=== PATIENT | male | born 1995 | race Caucasian/White ===

== ENCOUNTER 2022-09-04 05:38 | Emergency (ER) | payer OTHER, SELFPAY ==
[2022-09-04 05:40] VITALS: BP 140/78; PULSE 75; RESP 18; TEMP 36.7; O2SAT 98; BMI 30.5
[2022-09-04] MEDS: morphine 10 MG/ML Syringe IM (07:21)
[2022-09-04] MEDS: Ondansetron ODT 4 MG Tablet PO (07:21)
[2022-09-04 07:23] VITALS: BP 131/68; PULSE 77; RESP 16; O2SAT 97
--- NOTE | 2022-09-04 08:41 | EX.ED.DYSGE1 ---
HPI History of Present Illness Chief Complaint: Other, Pain/Inj Narrative Narrative: Patient is a 27-year-old male with no significant past medical history. He states that he has had pain in his low back/upper buttocks region for the past 3 to 5 days with no known injury. He states he went and saw his family doctor today who informed him that he has changes consistent with a infected cyst. He was started on Augmentin but the area was not drained and he feels that despite taking the antibiotic there is been no improvement and secondary to this he comes in for evaluation. PFSH PFSH Medical History no medical history no medical history Home Medications oxycodone-acetaminophen 5 mg-325 mg tablet (Percocet) 1 tab PO Q6H PRN pain 3 days #12 tabs 09/04/22 [Rx Last Taken Unknown] Allergy/AdvReac Type Severity Reaction Status Date / Time No Known Allergies Allergy Verified 09/04/22 05:47 Social History Smoking Status: Current every day smoker tobacco type: cigarettes ROS ROS ED Constitutional Constitutional ED: Denies chills or fever(s) ENT ENT ED: Denies sore throat Cardiovascular Cardiovascular: Denies chest pain Respiratory/Chest Respiratory/Chest: Denies cough or dyspnea Gastrointestinal Gastrointestinal: Denies abdominal pain, diarrhea, nausea or vomiting Genitourinary Genitourinary ED: Denies dysuria Musculoskeletal Musculoskeletal: Denies myalgias Integumentary Reports abscess; Denies rash Neurologic Neurologic: Denies headache(s) Hematologic/Lymphatic Hematologic/Lymphatic: Denies easy bleeding or easy bruising EXAM Physical Exam Const Vital Signs: 09/04/22 05:40 09/04/22 05:56 09/04/22 07:23 Temperature 98.1 F Temperature Source Temporal Pulse Rate 75 77 Respiratory Rate 18 16 Respiratory Effort Normal Non-Labored Respiratory Pattern Normal Blood Pressure 140/78 H 131/68 H Blood Pressure Mean 98 89 Pulse Ox 98 97 Oxygen Delivery Method Room Air Room Air Positive well nourished and well developed General Appearance ED: well developed HEENT Reports moist mucous membranes Eyes PERRL and EOMs intact bilaterally Neck supple Resp normal respiratory effort and clear to auscultation bilaterally Cardio regular rate and regular rhythm Extremity normal to inspection Neuro oriented x3 and CN's II-XII intact bilaterally Sensorium / Orientation: alert Psych mental status grossly normal Skin Skin Narrative: There is a 2 x 3 cm area of erythema warmth and fluctuance at the low back/gluteal cleft region consistent with abscess. No active drainage or lymphangitic streaking noted. There is mild surrounding erythema consistent with cellulitis as well MDM MDM MDM Narrative Medical decision making narrative: Patient presented to the ER afebrile with area most consistent with abscess with mild surrounding cellulitis. As vitals were stable and there is no lymphangitic streaking I felt no need for imaging or laboratory studies. Patient had the area incised and drained as document below and following this he is safe for discharge. He is currently already prescribed Augmentin so there is no need to change antibiotics or prescribe any further Patient had the area cleaned with Betadine. It was anesthetized with 10 mL of 2% lidocaine with epinephrine in local fashion. A #11 blade was used to make a 1 cm incision over top the area of induration. A large amount of purulent material was expressed. Loculations were dissected with a needle guerrero. The area was copiously irrigated with normal saline. The wound was packed with iodoform gauze. Patient tolerated the procedure well without complication Discharge Plan Triage Chief Complaint: Other, Pain/Inj ED Provider: Margarito Zambrano Dx/Rx/DC Orders Clinical Impression: Abscess and cellulitis of gluteal region Instructions: ED Abscess Incision And Drainage Prescriptions: New oxycodone-acetaminophen [Percocet] 5-325 mg tablet 1 tab PO Q6H PRN (Reason: pain) 3 Days Qty: 12 0RF Primary Care Provider: Care Physician,No Primary Referrals: Care Physician,No Primary [Primary Care Provider] - Activity Restrictions/Additional Instructions: Please continue your Augmentin/antibiotic twice a day as directed. Remove your packing in 48 to 72 hours and follow-up with your family doctor or return to the ER should you have any further concerns Disposition Disposition: Home, Self Care Discharge Date/Time: 09/04/22 08:58
[2022-09-04 08:46] VITALS: BP 137/70; PULSE 69; RESP 18; O2SAT 99
[2022-09-04] MEDS: oxyCODONE 5 MG Tablet 10 MG PO (08:51)
== END 2022-09-04 08:58 | disposition home or self-care (01) ==
PROVIDERS: Emergency Provider Emergency Medicine; Visit Provider Emergency Medicine
DX: L02.31 Cutaneous abscess of buttock (principal); L03.317 Cellulitis of buttock; F17.210 Nicotine dependence, cigarettes, uncomplicated
CPT/HCPCS: 10080; 96372; 99283

== ENCOUNTER 2024-11-27 12:38 | Inpatient (IN) | payer OTHER, SELFPAY ==
[2024-11-27] VITALS (9 sets, daily range): BP systolic 124–147; BP diastolic 75–90; PULSE 94–113; RESP 16–21; TEMP 35.8–36.8; O2SAT 96–98; BMI 32.5
--- NOTE | 2024-11-27 13:17 | CT_ITS ---
PROCEDURE: CT neck soft tissues with IV contrast REASON FOR EXAM: Pain, swelling TECHNIQUE: Multiple contiguous axial images through the neck soft tissues were obtained after the administration of intravenous contrast. Two-dimensional coronal and sagittal reformatted images were reconstructed. Low-dose imaging technique was utilized. COMPARISON: None FINDINGS: Enlarged bilateral palatine tonsils, greater on the left with a small superimposed tonsillar abscess measuring 10 x 7 mm on the left. No discrete right peritonsillar abscess at this time. Edema extends for the palatine tonsil along the left aryepiglottic fold and piriform sinus, however there is no other discrete drainable fluid collection. No retropharyngeal abscess. Mass effect on the nasopharyngeal airway which is moderately narrowed. Hypo pharyngeal airway is patent. Multiple mildly enlarged bilateral cervical chain lymph nodes, likely reactive. Thyroid gland, submandibular glands and parotid glands are intact. Globes are intact. Tongue base is satisfactory. Lung apices are clear. No acute osseous abnormality. Paranasal sinuses and mastoid air cells are relatively clear. CT/Soft Tissue Neck WITH Contrast IMPRESSION: 1. Bilateral palatine tonsillitis with small tonsillar abscess on the left santa uring 10 x 7 mm. 2. Diffuse edema of the left aryepiglottic fold and piriform sinus without deborah tional abscess. Oropharyngeal and hypopharyngeal airways are patent. 3. Bilateral cervical chain adenopathy, likely reactive. One or more dose reduction techniques were used (e.g., Automated exposure contr ol, adjustment of the mA and/or kV according to patient size, use of iterative reconstruction technique). Reading Location: [facility]
[2024-11-27 13:29] LABS: Absolute Lymphocyte Count 6.59 X10^3/uL (0.83-4.51); Absolute Neutrophil Count 9.4 X10^3/uL (2.0-7.7); Basophil# 0.12 X10^3/uL; Basophil% 0.7 % (0-1); Eosinophil# 0.02 X10^3/uL; Eosinophils% 0.1 % (0-5); Hematocrit 45.4 % (40-54); Hemoglobin 15.2 g/dL (13.0-16.5); Lymphocyte # 6.59 X10^3/ul (0.83-4.51); Lymphocyte % 37.9 % (19-41); Mean Corp Hgb Conc 33.5 g/dL (32-36); Mean Corpuscular Hgb 29.5 pg (27.0-32.0); Mean Corpuscular Volume 88.2 fL (80-94); Monocyte# 1.17 X10^3/uL; Monocyte% 6.7 % (0-10); NRBC Flagged by Analyzer 0 % (0-5); Neutrophil # 9.42 X10^3/uL (2.7-7.7); Neutrophil % 54.1 % (47-70); POSITIVE DIFFERENTIAL YES; POSITIVE MORPHOLOGY YES; Platelet Count 245 K/mm3 (150-450); RBC Distribution Width CV 12.6 % (11.6-14.6); Red Blood Count 5.15 M/mm3 (4.6-6.2); White Blood Count 17.4 K/mm3 (4.4-11.0)
[2024-11-27 13:32] LABS: Differential Indicated SCAN CRITERIA MET
[2024-11-27] MEDS: 0.9% Normal Saline (1000mL) 1,000 ML 999 ML IV (13:33)
--- NOTE | 2024-11-27 13:44 | EX.ED.DYSGE1 ---
HPI History of Present Illness Chief Complaint: Sore Throat Narrative Narrative: 29-year-old male presents with his because of throat pain and closing of throat that he has had for the last 2 days. He states that 2 days ago he started to not feel well. He had a fever that first day. Over the last 2 days, he is having difficulty swallowing to the point where he cannot swallow liquids. He has pain with swallowing. He is having difficulty speaking as well. This is never happened to him previously. He does not take daily medications. His had been ill with upper respiratory infection as well. She denies any nausea or vomiting. No cough. Through review of his EMR, he was seen in urgent care today and it was stressed that he come to the emergency department for further evaluation and treatment. PFSH PFS Medical History no medical history Home Medications ?Medication ?Instructions ?Recorded ?Last Taken ?Type NK 11/27/24 Unknown History Allergy/AdvReac Type Severity Reaction Status Date / Time No Known Allergies Allergy Verified 11/27/24 12:41 Social History Smoking Status: Former smoker ROS ROS ED ROS Narrative Review of systems positive for fever that has resolved. Positive throat swelling. No difficulty breathing. Unable to eat or drink. No cough. No nausea or vomiting. No exacerbating or alleviating factors. EXAM Physical Exam Narrative Exam Narrative: Afebrile. Vital signs noted. Nontoxic-appearing. HEENT examination demonstrates PERRL, EOMI. Neck is soft and supple with noted uvular and peritonsillar swelling. No noted drooling currently. Handling secretions well. No meningismus. Positive hot potato voice. Cardiovascular examination reveals a positive tachycardia. Lungs clear to auscultation bilaterally. Abdomen soft and nontender. Const Vital Signs: 11/27/24 12:39 11/27/24 12:40 11/27/24 13:40 Temperature 96.9 F L 96.9 F L 98.2 F Temperature Source Temporal Temporal Oral Pulse Rate 112 H 113 H 98 Respiratory Rate 18 16 21 H Blood Pressure 125/90 H 125/90 H 140/75 H Blood Pressure Mean 101 101 96 Pulse Ox 96 97 98 Oxygen Delivery Method Room Air Room Air Room Air MDM MDM MDM Narrative Medical decision making narrative: Differential diagnosis includes but not limited to peritonsillar abscess versus strep pharyngitis versus retropharyngeal abscess versus mononucleosis. Pulse ox is 97% on room air without evidence of hypoxia. His examination is difficult to fully visualize the posterior pharynx and tonsils. CBC was obtained and reviewed and he has elevated white count of 17.4 with hemoglobin normal at 15.2, hematocrit 45.4, platelet count normal at 245. There is concern for dehydration because he states that he has not been able to eat or drink in the past 24 to [address] I do feel CT imaging of the soft tissue of the neck is indicated to look for retropharyngeal abscess versus tonsillar swelling. I have lower concern for airway obstruction. I reviewed his other laboratory work, and he does not appear profoundly dehydrated with a normal sodium of 137, potassium normal at 4.0, BUN slightly elevated 19 with creatinine 0.95. Glucose appropriately elevated 99. Lactic acid normal at 0.9 so I have very low suspicion for sepsis. His monoscreen is positive. In review of the radiology report of the CT of the soft tissue of the neck, he has bilateral palatine tonsil swelling with superimposed tonsillar abscess measuring 10 mm x 7 mm. While he has diffuse edema of the left aryepiglottic fold and piriform sinus, there is no evidence of airway obstruction or drainable abscess. I discussed the patient with the suspension cord tier on-call, Dr. José, who agrees with scheduled steroids. He would also like the patient started on clindamycin intravenously. As the patient is having moderate difficulty swallowing, I will discuss patient with the hospitalist Dr. Marybeth Gardiner for admission. His strep is negative. His COVID and influenza and RSV swab is pending. Disposition is admit in stable condition. History & Record Review Discussion w/independent historian: Patient and Family Lab Data Attestation: I reviewed the patient's lab results. Labs: Laboratory Results - last 24 hr 11/27/24 11/27/24 12:50 13:32 WBC 17.4 H RBC 5.15 Hgb 15.2 Hct 45.4 MCV 88.2 MCH 29.5 MCHC 33.5 RDW Std Deviation 41.0 RDW Coeff of Zaida 12.6 Plt Count 245 MPV 9.0 Immature Gran % (Auto) 0.500 Neut % (Auto) 54.1 Lymph % (Auto) 37.9 [place] % (Auto) 6.7 Eos % (Auto) 0.1 Baso % (Auto) 0.7 Absolute Neuts (auto) 9.4 H Absolute Lymphs (auto) 6.59 H Nucleated RBC % 0 Atypical Lymphocytes 2+ Platelet Estimate ADEQUATE RBC Morphology NORM C+C Sodium 137 Potassium 4.0 Chloride 105 Carbon Dioxide 23.0 Anion Gap 9 BUN 19 H Creatinine 0.95 Estim Creat Clear Calc 139.22 Est GFR (MDRD) Af Amer 121 Est GFR (MDRD) Non-Af 100 BUN/Creatinine Ratio 20.1 H Glucose 99 Lactic Acid 0.9 Calcium 9.4 Total Bilirubin 2.60 H AST 17 ALT 54 Alkaline Phosphatase 111 Total Protein 8.3 H Albumin 4.0 Globulin 4.3 H Albumin/Globulin Ratio 0.9 Monoscreen POSITIVE H Radiography Diagnostic Testing: Clinical Impression(s) from Imaging Studies Soft Tissue Neck CT 11/27/24 13:17 IMPRESSION: 1. Bilateral palatine tonsillitis with small tonsillar abscess on the left measuring 10 x 7 mm. 2. Diffuse edema of the left aryepiglottic fold and piriform sinus without additional abscess. Oropharyngeal and hypopharyngeal airways are patent. 3. Bilateral cervical chain adenopathy, likely reactive. One or more dose reduction techniques were used (e.g., Automated exposure control, adjustment of the mA and/or kV according to patient size, use of iterative reconstruction technique). Reading Location: [facility] Management Discussion w/another healthcare provider: Hospitalist and Warehouse Team Leader (Otolaryngology, Dr. José) Discharge Plan Dx/Rx/DC Orders Clinical Impression: Acute infective tonsillitis, Tonsillar abscess, Inability to swallow Disposition Disposition: Acute Care [facility]
[2024-11-27 13:48] LABS: ALB/GLOB Ratio 0.9 RATIO (0.9-2.4); AST(SGOT) 17 U/L (15-37); Alanine Aminotransfer ALT/SGPT 54 U/L (16-61); Alkaline Phosphatase 111 U/L (45-117); Anion Gap 9 (5-15); BUN 19 mg/dL (7-18); BUN/Creat Ratio 20.1 RATIO (10-20); Calcium,Total 9.4 mg/dL (8.5-10.1); Chloride 105 mmol/L (98-107); Creatinine, Serum 0.95 mg/dL (0.70-1.30); EST Glomerular Filtration Rate 100 mL/min (>60); Est Glom Filt Rate - Afr Amer 121 mL/min (>60); Estimated Creatinine Clearance 139.22 ml/min; Globulin 4.3 g/dL (2.2-4.2); Glucose 99 mg/dL (74-106); Protein, Total 8.3 g/dL (6.4-8.2); Sodium Level 137 mmol/L (136-145)
[2024-11-27 14:01] LABS: Internal QC Validated? YES +Cl - CLEAR BKGD; Monotest POSITIVE (Negative); Record Kit Lot#, Mono 13241430
[2024-11-27] MEDS: dexAMETHasone 10 MG/ML Vial IV ×2 (14:07→20:25)
[2024-11-27 14:10] LABS: Atypical Lymphocyte 2+ %; Platelet Estimate ADEQUATE (ADEQ); Red Cell Morphology NORM C+C NORMAL (NORM C&C)
[2024-11-27 14:13] LABS: Lactic Acid 0.9 mmol/L (0.4-1.9)
[2024-11-27] MEDS: Clindamycin 900 MG/50 ML BAG 75 MG IV ×2 (15:11→20:26)
--- NOTE | 2024-11-27 15:34 | PCM.HP.STD ---
HPI - General General Date of Service: 11/27/24 Chief Complaint: Pain on swallowing HPI Narrative JULIANNE VENTURA, is a 29-year-old male presented to [facility] ED 11/27/2024 with his due to throat pain and feeling like he has had closing of his throat over the past 2 days. Has been feeling generally unwell for 2 days and had fever on the first days and has had increased difficulty swallowing and also pain with swallowing, is beginning to have difficulty speaking. In the ED patient with heart rate 112, blood pressure 125/90, pulse ox 96% on room air. White blood cell count 17.4 and Monospot positive. Soft tissue neck demonstrated bilateral palatine tonsillitis with small tonsillar abscess on the left measuring 10 x 7 mm as well as diffuse edema of the left area epiglottic fold and piriform sinus without additional abscess, additionally bilateral cervical chain adenopathy. ENT physician radon inspector contacted in ED who recommended clindamycin and Decadron and given that he is having difficulty tolerating p.o. admission recommended. Hospitalist contacted for admission. Patient evaluated bedside and reports the EVAR 2 days ago with increased throat pain with swallowing and now his voice is affected so he decided to come in. In the ED he is not had any further worsening but no significant improvement. One of his main concerns is that he has been unable to eat and drink and is feeling very dehydrated. Not currently reporting shortness of breath, primary concerns are with swallowing. ROS otherwise within normal limits [facility] Medical History no medical history Home Medications ?Medication ?Instructions ?Recorded ?Last Taken ?Type NK 11/27/24 Unknown History Allergy/AdvReac Type Severity Reaction Status Date / Time No Known Allergies Allergy Verified 11/27/24 12:41 Social History Smoking Status: Former smoker ROS ROS Narrative General: Fever 2 days ago HENT: Throat sore when swallowing, notes he feels like he has swelling in his throat and his voice is had some changes EYES: Denies changes in vision Resp: No productive cough, denies shortness of breath Cardiac: Denies chest pain GI: Denies abdominal pain, denies changes in bowel, denies nausea/vomiting : Denies changes in urination Extremity: Denies swelling MSK: Denies weakness Neuro: Denies any numbness/tingling Heme: Denies any bleeding or bruising Skin: Denies rashes Psychiatric: No complaints voiced Vital Signs Vital Signs Vital Signs: 11/27/24 12:39 11/27/24 12:40 11/27/24 13:40 Temperature 96.9 F L 96.9 F L 98.2 F Temperature Source Temporal Temporal Oral Pulse Rate 112 H 113 H 98 Respiratory Rate 18 16 21 H Blood Pressure 125/90 H 125/90 H 140/75 H Blood Pressure Mean 101 101 96 Pulse Ox 96 97 98 Oxygen Delivery Method Room Air Room Air Room Air 11/27/24 14:38 11/27/24 15:09 Temperature 97.1 F L Temperature Source Pulse Rate 108 H 103 H Respiratory Rate 17 17 Blood Pressure 126/77 H 126/77 H Blood Pressure Mean 93 93 Pulse Ox 98 97 Oxygen Delivery Method Room Air Weight Weight: 103.056 kg Body Mass Index (BMI) 32.5 Physical Exam Narrative General: Alert, oriented HEENT: Atraumatic, uvula erythematous, difficult to see past tongue even with tongue depressor, does have somewhat muffled voice Eyes: Anicteric, normal conjunctiva, extraocular movements grossly intact Neck: Supple Respiratory: Clear to auscultation bilaterally, normal respiratory effort Cardiovascular: Regular rate and rhythm GI: Soft, nontender, nondistended Extremities: No edema Musculoskeletal: Moving all extremities Neuro: No overt focal neurological deficits Skin: No rashes appreciated Psych: Cooperative Results Lab / Micro Data 11/27/24 12:50 11/27/24 12:50 Labs: Laboratory Results - last 24 hr 11/27/24 12:50: WBC 17.4 H, RBC 5.15, Hgb 15.2, Hct 45.4, MCV 88.2, MCH 29.5, MCHC 33.5, RDW Std Deviation 41.0, RDW Coeff of Zaida 12.6, Plt Count 245, MPV 9.0, Immature Gran % (Auto) 0.500, Neut % (Auto) 54.1, Lymph % (Auto) 37.9, [place] % (Auto) 6.7, Eos % (Auto) 0.1, Baso % (Auto) 0.7, Absolute Neuts (auto) 9.4 H, Absolute Lymphs (auto) 6.59 H, Nucleated RBC % 0, Atypical Lymphocytes 2+, Platelet Estimate ADEQUATE, RBC Morphology NORM C+C, Sodium 137, Potassium 4.0, Chloride 105, Carbon Dioxide 23.0, Anion Gap 9, BUN 19 H, Creatinine 0.95, Estim Creat Clear Calc 139.22, Est GFR (MDRD) Af Amer 121, Est GFR (MDRD) Non-Af 100, BUN/Creatinine Ratio 20.1 H, Glucose 99, Calcium 9.4, Total Bilirubin 2.60 H, AST 17, ALT 54, Alkaline Phosphatase 111, Total Protein 8.3 H, Albumin 4.0, Globulin 4.3 H, Albumin/Globulin Ratio 0.9 11/27/24 13:32: Lactic Acid 0.9, Monoscreen POSITIVE H Micro: Microbiology 11/27/24 13:32 Mucosa - Nose SARS-CoV-2, Influenza & RSV (PCR) - Final 11/27/24 13:32 Mucosa - Throat Streptococcus pyogenes (PCR) - Final Imaging Radiology Impression Soft Tissue Neck CT 11/27/24 13:17 IMPRESSION: 1. Bilateral palatine tonsillitis with small tonsillar abscess on the left measuring 10 x 7 mm. 2. Diffuse edema of the left aryepiglottic fold and piriform sinus without additional abscess. Oropharyngeal and hypopharyngeal airways are patent. 3. Bilateral cervical chain adenopathy, likely reactive. One or more dose reduction techniques were used (e.g., Automated exposure control, adjustment of the mA and/or kV according to patient size, use of iterative reconstruction technique). Reading Location: [facility] Assessment & Plan Assessment/Plan (1) Acute infective tonsillitis: (2) Tonsillar abscess: PLAN: Plan # Tonsillitis and tonsillar abscess -Soft tissue neck demonstrated bilateral palatine tonsillitis with small tonsillar abscess on the left measuring 10 x 7 mm as well as diffuse edema of the left area epiglottic fold and piriform sinus without additional abscess, additionally bilateral cervical chain adenopathy -Discussed with ENT, Decadron and clindamycin recommended and patient will be seen in consultation -IV clindamycin 900 mg every 8 hours -IV ketorolac for pain control -IV fluids -IV Decadron 10 mg every 8 hours, once patient can tolerate his own secretions and tolerate p.o. will likely be able to discharge on Medrol Dosepak and clindamycin -Will start patient on liquids given his difficulty with swallowing and increase diet as tolerated #DVT ppx: SCDs Marybeth Gardiner MD Time spent in the patient's overall evaluation, decision-making process, review of diagnostic data, adjustment of management, discussion with other providers, nursing and ancillary staff involved in patient's care documentation, 56 Minutes Charges/Coding Visit Charges Inpatient E&M: 78126 Init Hosp L2
--- NOTE | 2024-11-27 15:45 | CASEMGMT ---
Care Management Face to Face with patient for initial transition planning/care coordination assessment in the ED.? This junior technical writer introduced self and role at [facility]. Patient alert and oriented. Patient willing to participate in assessment and is able to answer all questions appropriately.? Care providers, pharmacy, and demographics verified. Admitting Diagnosis: Acute Infective Tonsillitis Other diagnosis history: No known medical history PCP: Dr. Nickerson in [facility]. Specialists: None Preferred Pharmacy: [facility] Insurance: [employer] Prescription Benefit: No Living Will/HPOA: No and not interested at this time. LNOK: Patient?s Maria E Living Arrangements: Patient currently lives with his and daughter Anahi, age 2. Transportation: Patient denied any transportation barriers at this time. DME: None and none needed. HHC: None previously and none needed. SNF/Rehab: No history ZUGGI: [facility] History: Denied Patient goals: Patient wishes to discharge home, denies need for home health care at this time. Patient states he has no further needs or concerns at this time. Disposition Plan: admission to acute; RN CM/SW to follow for discharge planning needs that may arise. Marga Duong, VOLUNTEER SERVICES DIRECTOR, AMUSEMENT PARK WORKER
[2024-11-27] MEDS: Ketorolac 30 MG/ML Syringe IV (20:15)
[2024-11-27] MEDS: 0.9% Normal Saline (1000mL) 1,000 ML 100 ML IV (20:30)
[2024-11-27] MEDS: Morphine 4 MG/ML Syringe IV (22:32)
[2024-11-28 02:00] VITALS: BP 119/79; PULSE 77; RESP 16; TEMP 36.5; O2SAT 96
[2024-11-28] MEDS: dexAMETHasone 10 MG/ML Vial IV ×3 (02:54→18:10)
[2024-11-28] MEDS: Ketorolac 30 MG/ML Syringe IV ×2 (02:56→12:22)
[2024-11-28] MEDS: Clindamycin 900 MG/50 ML BAG 75 MG IV ×3 (05:52→21:50)
[2024-11-28] MEDS: 0.9% Normal Saline (1000mL) 1,000 ML 100 ML IV (05:53)
[2024-11-28 07:12] LABS: Absolute Lymphocyte Count 4.33 X10^3/uL (0.83-4.51); Absolute Neutrophil Count 9.1 X10^3/uL (2.0-7.7); Basophil# 0.09 X10^3/uL; Basophil% 0.6 % (0-1); Hematocrit 42.5 % (40-54); Hemoglobin 14.3 g/dL (13.0-16.5); Lymphocyte # 4.33 X10^3/ul (0.83-4.51); Lymphocyte % 31.2 % (19-41); Mean Corp Hgb Conc 33.6 g/dL (32-36); Mean Corpuscular Hgb 29.9 pg (27.0-32.0); Mean Corpuscular Volume 88.7 fL (80-94); Mean Platelet Vol. 9.3 fl (6.2-12.0); Monocyte# 0.22 X10^3/uL; Monocyte% 1.6 % (0-10); NRBC Flagged by Analyzer 0 % (0-5); Neutrophil # 9.14 X10^3/uL (2.7-7.7); POSITIVE MORPHOLOGY YES; Platelet Count 240 K/mm3 (150-450); RBC Distribution Width CV 12.5 % (11.6-14.6); RBC Distribution Width SD 41.1 fl (35.1-43.9); Red Blood Count 4.79 M/mm3 (4.6-6.2); White Blood Count 13.9 K/mm3 (4.4-11.0)
[2024-11-28 07:21] VITALS: O2SAT 95
[2024-11-28 07:28] LABS: Differential Indicated SCAN CRITERIA MET
[2024-11-28] MEDS: Senna/Docusate Sodium 1 Tablet 2 TABLET PO (07:42)
[2024-11-28 08:31] LABS: Anion Gap 8 (5-15); BUN 22 mg/dL (7-18); BUN/Creat Ratio 29.7 RATIO (10-20); Calcium,Total 8.9 mg/dL (8.5-10.1); Chloride 108 mmol/L (98-107); Creatinine, Serum 0.74 mg/dL (0.70-1.30); EST Glomerular Filtration Rate 133 mL/min (>60); Est Glom Filt Rate - Afr Amer 161 mL/min (>60); Estimated Creatinine Clearance 178.73 ml/min; Glucose 170 mg/dL (74-106); Potassium 4.3 mmol/L (3.5-5.1); Sodium Level 137 mmol/L (136-145)
[2024-11-28 09:00] VITALS: BP 120/66; PULSE 89; RESP 16; TEMP 36.7; O2SAT 94
[2024-11-28 10:03] LABS: Atypical Lymphocyte 2+ %; Platelet Estimate ADEQUATE (ADEQ); Red Cell Morphology NORM C+C NORMAL (NORM C&C)
--- NOTE | 2024-11-28 10:40 | PCM.PN.HOSP ---
Reason for Visit Reason for Visit: Diagnoses Acute tonsillitis, unspecified (11/27/24) Peritonsillar abscess (11/27/24) Subjective Subjective Saw patient at bedside's morning. Patient was sitting up comfortably in bed, conversing normally, in no acute distress. Stated he felt mild better than yesterday. Continues to feel fatigued but has less pain on swallowing today initially. Denies any fevers or chills. No other acute concerns today. Objective Data Objective Data Vital Signs: Vital Signs Temp Pulse Resp BP Pulse Ox O2 Del Method 98.1 F 89 16 120/66 94 Room Air 11/28/24 09:00 11/28/24 09:00 11/28/24 09:00 11/28/24 09:00 11/28/24 09:00 11/28/24 09:00 Oxygen Delivery Method Room Air Weight: 103.056 kg Body Mass Index (BMI) 32.5 Intake & Output: Intake and Output for Last 24 Hours 11/26/24 11/27/24 11/28/24 23:59 23:59 23:59 Intake Total 1100 / 1100 988.33 / 988.33 Balance 1100 / 1100 988.33 / 988.33 Lab / Micro Data 11/28/24 06:40 11/28/24 06:40 Labs: Laboratory Results - last 24 hr 11/27/24 12:50: WBC 17.4 H, RBC 5.15, Hgb 15.2, Hct 45.4, MCV 88.2, MCH 29.5, MCHC 33.5, RDW Std Deviation 41.0, RDW Coeff of Zaida 12.6, Plt Count 245, MPV 9.0, Immature Gran % (Auto) 0.500, Neut % (Auto) 54.1, Lymph % (Auto) 37.9, [place]ock % (Auto) 6.7, Eos % (Auto) 0.1, Baso % (Auto) 0.7, Absolute Neuts (auto) 9.4 H, Absolute Lymphs (auto) 6.59 H, Nucleated RBC % 0, Atypical Lymphocytes 2+, Platelet Estimate ADEQUATE, RBC Morphology NORM C+C, Sodium 137, Potassium 4.0, Chloride 105, Carbon Dioxide 23.0, Anion Gap 9, BUN 19 H, Creatinine 0.95, Estim Creat Clear Calc 139.22, Est GFR (MDRD) Af Amer 121, Est GFR (MDRD) Non-Af 100, BUN/Creatinine Ratio 20.1 H, Glucose 99, Calcium 9.4, Total Bilirubin 2.60 H, AST 17, ALT 54, Alkaline Phosphatase 111, Total Protein 8.3 H, Albumin 4.0, Globulin 4.3 H, Albumin/Globulin Ratio 0.9 11/27/24 13:32: Lactic Acid 0.9, Monoscreen POSITIVE H 11/28/24 06:40: WBC 13.9 H, RBC 4.79, Hgb 14.3, Hct 42.5, MCV 88.7, MCH 29.9, MCHC 33.6, RDW Std Deviation 41.1, RDW Coeff of Zaida 12.5, Plt Count 240, MPV 9.3, Immature Gran % (Auto) 0.600, Neut % (Auto) 66.0, Lymph % (Auto) 31.2, [place]ock % (Auto) 1.6, Eos % (Auto) 0.0, Baso % (Auto) 0.6, Absolute Neuts (auto) 9.1 H, Absolute Lymphs (auto) 4.33, Nucleated RBC % 0, Atypical Lymphocytes 2+, Platelet Estimate ADEQUATE, RBC Morphology NORM C+C, Sodium 137, Potassium 4.3, Chloride 108 H, Carbon Dioxide 21.0, Anion Gap 8, BUN 22 H, Creatinine 0.74, Estim Creat Clear Calc 178.73, Est GFR (MDRD) Af Amer 161, Est GFR (MDRD) Non-Af 133, BUN/Creatinine Ratio 29.7 H, Glucose 170 H, Calcium 8.9 Micro: Microbiology 11/27/24 13:32 Mucosa - Nose SARS-CoV-2, Influenza & RSV (PCR) - Final 11/27/24 13:32 Mucosa - Throat Streptococcus pyogenes (PCR) - Final Radiography Diagnostic Testing: Radiology Impression Soft Tissue Neck CT 11/27/24 13:17 IMPRESSION: 1. Bilateral palatine tonsillitis with small tonsillar abscess on the left measuring 10 x 7 mm. 2. Diffuse edema of the left aryepiglottic fold and piriform sinus without additional abscess. Oropharyngeal and hypopharyngeal airways are patent. 3. Bilateral cervical chain adenopathy, likely reactive. One or more dose reduction techniques were used (e.g., Automated exposure control, adjustment of the mA and/or kV according to patient size, use of iterative reconstruction technique). Reading Location: [facility] Physical Exam Const alert, oriented x3 and no apparent distress Constitutional Narrative: Pleasant younger male, class I obesity, sitting back comfortably in bed, conversing normally, in no acute distress. General Appearance: cooperative and comfortable HEENT normocephalic, head/scalp atraumatic and hearing grossly normal bilaterally HEENT Narrative: Uvula erythematous, could not see past this. Eyes PERRL, EOMs intact bilaterally and conjunctivae normal Neck full ROM Chest inspection of chest normal Resp normal respiratory effort, normal air movement, no use of accessory muscles and clear to auscultation bilaterally Cardio regular rate, regular rhythm, no murmurs and peripheral pulses 2+ throughout GI normal to inspection, nondistended, normoactive bowel sounds, soft to palpation, non-tender and non-distended Back/Spine normal ROM Extremity normal to inspection, full ROM and no pedal edema Skin no rashes or lesions noted Psych mental status grossly normal Assessment & Plan Assessment/Plan (1) Acute infective tonsillitis: (2) Tonsillar abscess: (3) Painful swallowing: (4) Mononucleosis: PLAN: Plan Patient is a 29-year-old male who presented [facility] ED on 11/27/2024 with flulike symptoms and painful swallowing. 1. Tonsillitis with tonsillar abscess in setting of mononucleosis infection ? ENT following. Presented with 4-day history of flulike symptoms and sore throat with painful swallowing. CT soft tissue neck showed bilateral palatine tonsillitis with small tonsillar abscess on left measuring 10 x 7 mm, along with diffuse edema of left aryepiglottic fold and piriform sinus and bilateral cervical chain adenopathy. Positive for mononucleosis. No clear recent exposures per patient. Per ENT, no urgent surgery required. Continue IV steroids and antibiotics for now. Once patient can tolerate p.o. intake, will be okay for discharge home on p.o. steroids and antibiotics. 2. Class I obesity ? BMI 32 on admit. Encouraged lifestyle modifications. DVT prophylaxis: Low risk, ambulate CODE STATUS: Full code, verified Expected disposition: Home, 1 to 2 days Total clinical time spent by myself addressing the patient's medical issues, reviewing all the data, and collaborating with patient's care team: 35 minutes. Charges/Coding Visit Charges Inpatient E&M: 37778 Subs Hosp L2
--- NOTE | 2024-11-28 12:36 | PN_ITS ---
Progress Note Asked to see the patient at the request of Dr. Gardiner for tonsillitis HPI:29 yo white male who has felt ill for 4 days. It started with a sore throat. He began having fever and the sore throat progressed to the point where he could not handle oral intake. He does not know of any mono contacts recently (daughter had mono a year ago). He presented to the ER where he had a CT scan and was admitted. [facility] Medical History no medical history Home Medications ?Medication ?Instructions ?Recorded ?Last Taken ?Type NK 11/27/24 Unknown History Allergy/AdvReac Type Severity Reaction Status Date / Time No Known Allergies Allergy Verified 11/27/24 12:41 Social History Smoking Status: Former smoker ROS ROS Narrative General: Fever 2 days ago HENT: Throat sore when swallowing, notes he feels like he has swelling in his throat and his voice is had some changes EYES: Denies changes in vision Resp: No productive cough, denies shortness of breath Cardiac: Denies chest pain GI: Denies abdominal pain, denies changes in bowel, denies nausea/vomiting : Denies changes in urination Extremity: Denies swelling MSK: Denies weakness Neuro: Denies any numbness/tingling Heme: Denies any bleeding or bruising Skin: Denies rashes Psychiatric: No complaints voiced PE: awake alert NAD No stridor or stertor Ears wnl bilaterally Nose no purulence mouth- 3.5 + erythematous tonsils with exudate. No asymmetry. No peritonsillar fullness. Uvula midline. No trismus Neck no adenopathy CT scan- tonsillar hypertrophy and edema with a 10 mm intra tonsillar hypolucency. + edema of the left hypopharyx with effacement of the pyriform sinus. Airway widely patent. A: Mononucleosis Acute tonsillitis Upper airway obstruction from above illness P: The patient does not require surgery. He may be discharged on steroid and antibiotics once he is tolerating oral intake. Follow up in 3 months if his tonsils remain enlarged. We have discussed contagiousness and his need to refrain from contact sports/abdominal trauma today.
[2024-11-28 15:00] VITALS: BP 118/70; PULSE 74; RESP 18; TEMP 36.3; O2SAT 96
[2024-11-28] MEDS: Acetaminophen 325 MG Tablet 650 MG PO (16:59)
[2024-11-28] MEDS: 0.9% Saline Lock 10 ML Syringe IV ×2 (18:10→21:51)
[2024-11-28 21:48] VITALS: BP 113/69; PULSE 98; RESP 18; TEMP 36; O2SAT 95
[2024-11-29] MEDS: dexAMETHasone 10 MG/ML Vial IV ×2 (02:37→10:08)
[2024-11-29] MEDS: 0.9% Saline Lock 10 ML Syringe IV ×4 (02:38→10:08)
[2024-11-29 03:29] VITALS: BP 130/78; PULSE 64; RESP 16; TEMP 36; O2SAT 100
[2024-11-29] MEDS: Clindamycin 900 MG/50 ML BAG 75 MG IV ×2 (04:59→13:29)
[2024-11-29] MEDS: Acetaminophen 325 MG Tablet 650 MG PO (05:55)
[2024-11-29 07:52] VITALS: O2SAT 95
[2024-11-29 09:30] VITALS: BP 129/74; PULSE 81; RESP 18; TEMP 36.7; O2SAT 98
[2024-11-29] MEDS: Ketorolac 30 MG/ML Syringe IV (09:44)
--- NOTE | 2024-11-29 16:36 | PCM.DC ---
Discharge Instructions Diet Discharge Diet: No restrictions DC O2, CPAP, BIPAP needs Home O2 Discharge instructions: No Dressing / Incision Discharge Activity: Return to Normal Activity Dressing / Incision Call your doctor if you observe: Fever of 101 or Higher, Shortness of breath, Dizziness, Fainting spells, Swelling in the ankles, Chest pain and Increased palpitations (irregular heartbeat) Follow Up Care Test Results: Test results from this visit will be discussed in further detail at your follow-up appointment, if applicable. Discharge Plan Admission Admit Date/Time: 11/27/24 15:35 Attending Provider: Eagle Oliveira Primary Care Provider: Care Physician,No Primary Consulting Providers: Devin José; Marybeth Gardiner; Karthik Schmitz Instructions Patient Instructions: Mononucleosis ([place]) Discharge Orders/Prescriptions Prescriptions: New methylprednisolone [Medrol (Ham)] 4 mg tablets,dose pack See Rx Instructions .ROUTE .COMPLEX Qty: 21 0RF Rx Instructions: for 6 days clindamycin HCl 300 mg capsule 300 mg PO Q8H 7 Days Qty: 21 0RF Referrals / Follow Up: Devin José MD [Med Staff - Active Staff] - Within 3 Months Care Physician,No Primary [Primary Care Provider] - Disposition Disposition (needs filled in before D/C Order can be placed): Home, Self Care
[2024-11-29 16:44] VITALS: BP 129/79; PULSE 81; RESP 18; TEMP 36.7; O2SAT 98
--- NOTE | 2024-11-29 18:31 | DS.PCM_ITS ---
Providers Date of Admission: 11/27/24 Primary Care Physician: Ele Primary Care Phys Consultations 11/27/24 18:28 Consult: ENT Routine Consulting Provider: Devin José Reason for Consult: tonsillar abscess, tonsilitis EMERGENT Consult: No MD Notified: Yes Date Notified: 11/27/24 Time Notified: 15:44 Method of Notification: Verbal Reason For Visit: TONSILITIS, TONSILLAR ABSCESS Diagnosis Discharge Diagnosis (1) Acute infective tonsillitis: Status: Acute Code(s): J03.90 - Acute tonsillitis, unspecified (2) Tonsillar abscess: Status: Acute Code(s): J36 - Peritonsillar abscess (3) Painful swallowing: Status: Acute Code(s): R13.10 - Dysphagia, unspecified (4) Mononucleosis: Status: Acute Code(s): B27.90 - Infectious mononucleosis, unspecified without complication Medications at Discharge Home Medications clindamycin HCl 300 mg capsule 300 mg PO Q8H 7 days #21 caps 11/29/24 methylprednisolone 4 mg tablets in a dose pack (Medrol (Ham)) See Rx Instructions PO .COMPLEX #21 tabs 11/29/24 Hospital Course Operations None Procedures None Summary of Care Provided Minutes Spent on Discharge: 33 Hospital Course: Per HPI: JULIANNE VENTURA, is a 29-year-old male presented to [facility] ED 11/27/2024 with his due to throat pain and feeling like he has had closing of his throat over the past 2 days. Has been feeling generally unwell for 2 days and had fever on the first days and has had increased difficulty swallowing and also pain with swallowing, is beginning to have difficulty speaking. In the ED patient with heart rate 112, blood pressure 125/90, pulse ox 96% on room air. White blood cell count 17.4 and Monospot positive. Soft tissue neck demonstrated bilateral palatine tonsillitis with small tonsillar abscess on the left measuring 10 x 7 mm as well as diffuse edema of the left area epiglottic fold and piriform sinus without additional abscess, additionally bilateral cervical chain adenopathy. ENT physician recreation attendant contacted in ED who recommended clindamycin and Decadron and given that he is having difficulty tolerating p.o. admission recommended. Hospitalist contacted for admission. Patient evaluated bedside and reports the EVAR 2 days ago with increased throat pain with swallowing and now his voice is affected so he decided to come in. In the ED he is not had any further worsening but no significant improvement. One of his main concerns is that he has been unable to eat and drink and is feeling very dehydrated. Not currently reporting shortness of breath, primary concerns are with swallowing. ROS otherwise within normal limits Hospital Course: 1. Tonsillitis with tonsillar abscess in setting of mononucleosis infection ? ENT following. Presented with 4-day history of flulike symptoms and sore throat with painful swallowing. CT soft tissue neck showed bilateral palatine tonsillitis with small tonsillar abscess on left measuring 10 x 7 mm, along with diffuse edema of left aryepiglottic fold and piriform sinus and bilateral cervical chain adenopathy. Positive for mononucleosis. No clear recent exposures per patient. Per ENT, no urgent surgery required. Continue IV steroids and antibiotics for now. Once patient can tolerate p.o. intake, will be okay for discharge home on p.o. steroids and antibiotics. 11/29/2024: Feeling much better today, no shortness of breath and airway appears to be opening up. ENT did not feel that there be any role for surgery so recommended antibiotics and steroids. I discussed with him the plan for discharge today he expressed understanding the risk benefits of going home and would like to go home today. Will continue with Medrol Dosepak as well as 7 more days of clindamycin 300 mg p.o. 3 times daily. Will plan for outpatient follow-up with ENT in 3 months as well as his primary care in the next week or so. Physical Exam Narrative General: Alert, Oriented x3, Cooperative, No apparent distress HEENT: Atraumatic, PERRLA, EOMI, Normocephalic Oral: Moist Mucosa, bilateral tonsils are swollen though airway is open no stridor Neck: Supple, No JVD Lungs: Clear to auscultation, Normal air movement, No rhonchi, No wheeze, No rales Cardiovascular: Regular rate, Regular Rhythm, Normal S1, Normal S2, No murmurs Abdomen: Soft, Non Tender, Non-Distended, No Hepato-splenomegaly Extremities: No edema, Capillary Refill Less than 3 Seconds Skin: No rashes, No breakdown Musculoskeletal: No Tenderness to Palpation of Joints or Extremities Neurological: No focal neurological deficits, Motor Exam 5/5 strength throughout, Sensory exam intact to light touch and pain Psych/Mental Status: Normal Affect, Appropriate Weight / BMI Weight Weight: 227 lb 3.2 oz Body Mass Index (BMI) 32.5 ABG / Lab / Microbiology Data 11/28/24 06:40 11/28/24 06:40 Microbiology: Microbiology 11/27/24 13:32 Mucosa - Nose SARS-CoV-2, Influenza & RSV (PCR) - Final 11/27/24 13:32 Mucosa - Throat Streptococcus pyogenes (PCR) - Final D/C Instructions Discharge Diet: No restrictions Call your doctor if you observe: Fever of 101 or Higher, Shortness of breath, Dizziness, Fainting spells, Swelling in the ankles, Chest pain and Increased palpitations (irregular heartbeat) DC O2, CPAP, BIPAP Needs Home O2 Discharge instructions: No Meaningful Use Info Meaningful Use Meaningful Use Diagnoses (Choose all that apply): None applicable Ischemic Stroke Statin Dosing Therapy Reference: STATIN DOSE THERAPY REFERENCE: * Patients > 75 years receive moderate or high dose statin therapy. * Patients 75 years or YOUNGER should receive HIGH intensity statin dose unless contraindicated. You will be required to document reason for non-treatment if statin daily dose does not meet guidelines. HIGH DOSE STATIN THERAPY DAILY Atorvastatin > than or = to 40 mg Rosuvastatin > than or = to 20 mg Amlodipine + Atorvastatin > than or = to 2.5/40 mg Ezetimibe + Simvastatin 10/80 mg Simvastatin 80mg Discharge Plan Admission Admit Date/Time: 11/27/24 15:35 Attending Provider: Eagle Oliveira Primary Care Provider: Care Physician,No Primary Consulting Providers: Devin José; Marybeth Gardiner; Karthik Schmitz Instructions Patient Instructions: Mononucleosis ([place]) Discharge Orders/Prescriptions Prescriptions: New methylprednisolone [Medrol (Ham)] 4 mg tablets,dose pack See Rx Instructions .ROUTE .COMPLEX Qty: 21 0RF Rx Instructions: for 6 days clindamycin HCl 300 mg capsule 300 mg PO Q8H 7 Days Qty: 21 0RF Referrals / Follow Up: Devin José MD [Med Staff - Active Staff] - Within 3 Months Care Physician,No Primary [Primary Care Provider] - Disposition Disposition (needs filled in before D/C Order can be placed): Home, Self Care Charges/Coding Visit Charges Inpatient E&M: 56685 Disch Hosp >30min
== END 2024-11-29 17:11 | disposition home or self-care (01) | DRG 153 ==
LOC: ED 14:54 → PCU 17:26
PROVIDERS: Admitting Provider Internal Medicine; Emergency Provider Emergency Medicine; Visit Provider Family Medicine
DX: J36 Peritonsillar abscess (principal); R13.10 Dysphagia, unspecified; E66.811 Obesity, class 1; Z87.891 Personal history of nicotine dependence; Z68.32 Body mass index [BMI] 32.0-32.9, adult; B27.90 Infectious mononucleosis, unspecified without complication
CPT/HCPCS: 70491; 80048; 80053; 83605; 85025; 86308; 87631; 87651; 97802; 99284; Q9967; A4216